=== PATIENT | male | born 1945 | race Asian ===

== ENCOUNTER 2016-11-28 18:34 | Inpatient (IN) | payer OTHER ==
[~2016-11-28] VITALS: Ht 170.2 cm; Wt 50.5 kg
[~2016-11-28 18:34] MED LIST: ACET-2902 PO; AMLO-511 PO; CALC-613 PO; EPOE10I SQ; FOLI1CAP2 PO; INSNOV SQ; PANT40TA25 PO; VITAD1000 PO; WARF5 PO
[2016-11-28 18:45] LABS: BASOPHILS % (AUTO) 0.3 % (0.0-2.0); EOSINOPHILS % (AUTO) 4.1 % (1.0-6.0); HEMATOCRIT 35.6 % (41-53); HEMOGLOBIN 11.6 g/dL (13.5-17.5); LYMPHOCYTES # (AUTO) 0.7 K/uL (1.0-4.8); LYMPHOCYTES % (AUTO) 12.2 % (22.0-44.0); MEAN CORPUSCULAR HEMOGLOBIN 28.1 pg (26.0-34.0); MEAN CORPUSCULAR HGB CONC 32.6 G/dL (31.0-37.0); MEAN CORPUSCULAR VOLUME 86 fL (80-100); MONOCYTES # (AUTO) 0.9 K/uL (0.1-1.0); MONOCYTES % (AUTO) 15.4 % (2.0-9.0); NEUTROPHILS # (AUTO) 4.2 K/uL (1.8-7.7); PLATELET COUNT (AUTO) 156 K/uL (150-450); RED BLOOD CELL COUNT(AUTO) 4.13 MIL/uL (4.50-5.90); RED CELL DISTRIBUTION WIDTH 14.6 % (11.5-14.5); WHITE BLOOD COUNT (AUTO) 6.1 K/uL (4.5-11.0)
[2016-11-28 18:57] LABS: INR 1.1 (0.9-1.1); PROTHROMBIN TIME 11.4 SEC (9.4-11.6)
[2016-11-28 19:03] LABS: ANION GAP 9 mmol/L (8-16); CALCIUM, TOTAL 8.5 mg/dL (8.8-10.5); CARBON DIOXIDE 33 mmol/L (22-29); CHLORIDE 97 mmol/L (98-107); CREATININE 5.25 mg/dL (0.60-1.30); GLOMERULAR FILTR. RATE CALC 11 mL/min (>60); POTASSIUM 3.6 mmol/L (3.5-5.1); SODIUM SERUM 139 mmol/L (136-145); UREA NITROGEN, BLOOD 45 mg/dL (7-18)
[2016-11-28 19:37] LABS: ALANINE AMINOTRANSFERASE 33 U/L (12-78); ASPARTATE AMINOTRANSFERASE 30 U/L (15-37); BILIRUBIN,TOTAL 0.8 mg/dL (0.1-1.0); CREATINE KINASE MB 3.6 ng/mL (0-5); CREATINE KINASE, TOTAL 167 U/L (39-308); TOTAL PROTEIN, SERUM 8.1 g/dL (6.4-8.2)
[2016-11-28] MEDS ORDERED: 0.9% SODIUM CHLORIDE 10 ML SYRINGE IVP PRN (20:00)
[2016-11-28] MEDS ORDERED: ACETAMINOPHEN 325 MG TABLET PO PRN (20:00)
[2016-11-28] MEDS ORDERED: ONDANSETRON HCL 4 MG/2 ML VIAL IVP PRN (20:00)
[2016-11-28] MEDS ORDERED: ASPIRIN 81 MG CHEWABLE TABLET PO ONE (20:15)
[2016-11-29] MEDS ORDERED: HydrALAZINE HCL 20 MG/ML VIAL IVP PRN (06:30)
[2016-11-29] MEDS: HydrALAZINE HCL 20 MG/ML VIAL IVP PRN (06:40)
[2016-11-29] MEDS ORDERED: LORazepam 2 MG/ML VIAL IVP ONE ×2 (07:00→15:00)
[2016-11-29] MEDS ORDERED: FOLI1CAP23 PO (07:40)
[2016-11-29] MEDS ORDERED: CACARB500 PO (07:40)
[2016-11-29] MEDS ORDERED: VITAD1000 PO (07:40)
[2016-11-29] MEDS ORDERED: PANT40TA25 PO (07:40)
[2016-11-29] MEDS ORDERED: PHOSLOC PO (07:40)
[2016-11-29 07:43] LABS: BASOPHILS % (AUTO) 0.1 % (0.0-2.0); EOSINOPHILS % (AUTO) 1.1 % (1.0-6.0); HEMATOCRIT 35.8 % (41-53); HEMOGLOBIN 11.8 g/dL (13.5-17.5); LYMPHOCYTES # (AUTO) 0.7 K/uL (1.0-4.8); LYMPHOCYTES % (AUTO) 9.4 % (22.0-44.0); MEAN CORPUSCULAR HEMOGLOBIN 28.2 pg (26.0-34.0); MEAN CORPUSCULAR HGB CONC 32.9 G/dL (31.0-37.0); MEAN CORPUSCULAR VOLUME 86 fL (80-100); MONOCYTES # (AUTO) 0.8 K/uL (0.1-1.0); MONOCYTES % (AUTO) 10.5 % (2.0-9.0); NEUTROPHILS # (AUTO) 5.9 K/uL (1.8-7.7); NEUTROPHILS % (AUTO) 78.9 % (40.0-70.0); PLATELET COUNT (AUTO) 159 K/uL (150-450); RED BLOOD CELL COUNT(AUTO) 4.18 MIL/uL (4.50-5.90); RED CELL DISTRIBUTION WIDTH 14.1 % (11.5-14.5); WHITE BLOOD COUNT (AUTO) 7.5 K/uL (4.5-11.0)
[2016-11-29] MEDS ORDERED: CALCIUM CARBONATE 500 MG CHEWABLE TABLET CHEW PRN (07:45)
[2016-11-29] MEDS ORDERED: CALCIUM ACETATE 667 MG CAPSULE PO SCH (08:00)
[2016-11-29] MEDS: PANTOPRAZOLE SODIUM 40 MG DR TABLET PO SCH (08:39)
[2016-11-29 08:46] LABS: BILIRUBIN,TOTAL 0.8 mg/dL (0.1-1.0); CALCIUM, TOTAL 8.3 mg/dL (8.8-10.5); CREATININE 5.99 mg/dL (0.60-1.30); POTASSIUM 4.7 mmol/L (3.5-5.1); TOTAL PROTEIN, SERUM 8.1 g/dL (6.4-8.2)
[2016-11-29] MEDS ORDERED: VITAMIN B COMP/VIT C/FOLIC ACID CAPSULE PO SCH (09:00)
[2016-11-29] MEDS: CHOLECALCIFEROL (VIT D3) 1,000 UNITS TABLET PO SCH (09:00)
[2016-11-29 11:16] LABS: GLUCOSE,POINT OF CARE 101 MG/DL (70-110)
[2016-11-29 11:50] LABS: MAGNESIUM 2.3 mg/dL (1.80-2.40); PHOSPHORUS 5.3 mg/dL (2.5-4.9)
[2016-11-29] MEDS: CALCIUM ACETATE 667 MG CAPSULE PO SCH ×2 (12:00→17:30)
[2016-11-29 13:27] LABS: CHOL/HDL RATIO 2.6 (4.2-7.3); THYROID STIMULATING HORMONE 1.95 uIU/mL (0.36-3.74)
[2016-11-29 15:39] VITALS: BP 168/81
[2016-11-29 19:10] VITALS: BP 187/98
[2016-11-29] MEDS ORDERED: LABETALOL HCL 5 MG/ML 20 ML VIAL IVP ONE (19:45)
[2016-11-29 21:12] VITALS: BP 156/79
[2016-11-29 22:09] VITALS: BP 135/73
[2016-11-29] MEDS ORDERED: 0.9% SODIUM CHLORIDE 10 ML SYRINGE IVP PRN (22:15)
[2016-11-29 23:15] LABS: CALCIUM, TOTAL 8.2 mg/dL (8.8-10.5); CREATININE 7.55 mg/dL (0.60-1.30); POTASSIUM 4.7 mmol/L (3.5-5.1)
[2016-11-29 23:54] LABS: APPEARANCE,URINE CLEAR (CLEAR); GLUCOSE, URINE (UA) 100 mg/dL (NEGATIVE); KETONES,URINE NEGATIVE (NEGATIVE); LEUKOCYTE ESTERASE ,URINE TRACE (NEGATIVE); OCCULT BLOOD,URINE SMALL (NEGATIVE); PROTEIN,URINE SEE CONFIRM (NEGATIVE)
[2016-11-29 23:55] LABS: ADD UA MICROSCOPIC YES
[2016-11-30 00:03] VITALS: BP 176/99
[2016-11-30 00:15] LABS: SQUAMOUS EPITHELIAL CELL,UR Few /LPF (None Seen); SULFOSALICYLIC ACID,URINE 3+ (Negative)
[2016-11-30] MEDS: HydrALAZINE HCL 20 MG/ML VIAL IVP PRN ×2 (00:47→08:26)
[2016-11-30 01:07] LABS: OCCULT BLOOD,GASTRIC FLUID POSITIVE (NEGATIVE)
[2016-11-30 01:11] LABS: PH, GASTRIC OKAY
[2016-11-30 04:16] VITALS: BP 174/91
[2016-11-30 06:13] VITALS: BP 171/83
[2016-11-30] MEDS ORDERED: LORazepam 2 MG/ML VIAL IVP ONE ×2 (06:30→09:15)
[2016-11-30 06:36] LABS: BASOPHILS % (AUTO) 0.2 % (0.0-2.0); EOSINOPHILS % (AUTO) 0.3 % (1.0-6.0); HEMATOCRIT 35.4 % (41-53); HEMOGLOBIN 11.5 g/dL (13.5-17.5); LYMPHOCYTES # (AUTO) 0.5 K/uL (1.0-4.8); LYMPHOCYTES % (AUTO) 4.1 % (22.0-44.0); MEAN CORPUSCULAR HEMOGLOBIN 27.9 pg (26.0-34.0); MEAN CORPUSCULAR HGB CONC 32.6 G/dL (31.0-37.0); MEAN CORPUSCULAR VOLUME 85 fL (80-100); MONOCYTES % (AUTO) 8.4 % (2.0-9.0); NEUTROPHILS # (AUTO) 10.4 K/uL (1.8-7.7); PLATELET COUNT (AUTO) 155 K/uL (150-450); RED BLOOD CELL COUNT(AUTO) 4.14 MIL/uL (4.50-5.90); RED CELL DISTRIBUTION WIDTH 14.3 % (11.5-14.5)
[2016-11-30 06:41] LABS: HEMOGLOBIN A1C 6.4 % (4.5-6.2)
[2016-11-30 06:51] LABS: MAGNESIUM 2.4 mg/dL (1.80-2.40); THYROID STIMULATING HORMONE 1.76 uIU/mL (0.36-3.74)
[2016-11-30 07:02] LABS: GLUCOSE,POINT OF CARE 146 MG/DL (70-110)
[2016-11-30] MEDS ORDERED: ASPIRIN 81 MG EC TABLET PO SCH (09:00)
[2016-11-30] MEDS: VITAMIN B COMP/VIT C/FOLIC ACID CAPSULE PO SCH ×2 (09:00→09:34)
[2016-11-30] MEDS: PANTOPRAZOLE SODIUM 40 MG DR TABLET PO SCH (09:34)
[2016-11-30] MEDS: ASPIRIN 81 MG CHEWABLE TABLET NG SCH (09:34)
[2016-11-30] MEDS: CALCIUM ACETATE 667 MG CAPSULE PO SCH ×3 (09:35→16:50)
[2016-11-30] MEDS: CHOLECALCIFEROL (VIT D3) 1,000 UNITS TABLET PO SCH (09:53)
[2016-11-30] MEDS ORDERED: LORazepam 1 MG TABLET PO PRN (10:15)
[2016-11-30] MEDS ORDERED: MANNITOL 25%-12.5 GM/50 ML VIAL IVP PRN (10:15)
[2016-11-30] MEDS ORDERED: ALBUMIN HUMAN 25%-12.5GM/50ML IV BOTTLE IV PRN (10:15)
[2016-11-30] MEDS: PANTOPRAZOLE SODIUM 40 MG/VIAL IVP SCH (11:14)
[2016-11-30 13:41] LABS: GLUCOSE,POINT OF CARE 112 MG/DL (70-110)
[2016-11-30 17:38] VITALS: BP 155/73
[2016-11-30] MEDS ORDERED: DiphenhydrAMINE HCL 50 MG/ML VIAL IVP ONE (18:50)
[2016-11-30 20:14] VITALS: BP 166/80
[2016-11-30] MEDS: NITROGLYCERIN 2% (1 GM=INCH) PACKET TP SCH (20:30)
[2016-11-30 23:00] VITALS: BP 124/88
[2016-12-01] MEDS: NITROGLYCERIN 2% (1 GM=INCH) PACKET TP SCH ×5 (00:35→23:04)
[2016-12-01] MEDS: PANTOPRAZOLE SODIUM 40 MG/VIAL IVP SCH ×3 (00:36→20:49)
[2016-12-01 04:03] VITALS: BP 103/78
[2016-12-01] MEDS: LORazepam 2 MG/ML VIAL IVP PRN (05:14)
[2016-12-01 07:06] LABS: BASOPHILS % (AUTO) 0.3 % (0.0-2.0); EOSINOPHILS % (AUTO) 1.6 % (1.0-6.0); HEMOGLOBIN 11.7 g/dL (13.5-17.5); LYMPHOCYTES # (AUTO) 0.7 K/uL (1.0-4.8); LYMPHOCYTES % (AUTO) 5.7 % (22.0-44.0); MEAN CORPUSCULAR HEMOGLOBIN 27.9 pg (26.0-34.0); MEAN CORPUSCULAR HGB CONC 32.6 G/dL (31.0-37.0); MEAN CORPUSCULAR VOLUME 86 fL (80-100); MONOCYTES # (AUTO) 1.2 K/uL (0.1-1.0); MONOCYTES % (AUTO) 10.4 % (2.0-9.0); NEUTROPHILS # (AUTO) 9.6 K/uL (1.8-7.7); PLATELET COUNT (AUTO) 176 K/uL (150-450); RED CELL DISTRIBUTION WIDTH 14.4 % (11.5-14.5); WHITE BLOOD COUNT (AUTO) 11.8 K/uL (4.5-11.0)
[2016-12-01 07:30] VITALS: BP 123/76
[2016-12-01 07:54] LABS: ALBUMIN 2.8 g/dL (3.4-5.0); CALCIUM, TOTAL 9.2 mg/dL (8.8-10.5); CREATININE 6.06 mg/dL (0.60-1.30); MAGNESIUM 2.4 mg/dL (1.80-2.40); PHOSPHORUS 5.9 mg/dL (2.5-4.9); POTASSIUM 4.5 mmol/L (3.5-5.1); THYROID STIMULATING HORMONE 3.44 uIU/mL (0.36-3.74); TOTAL PROTEIN, SERUM 7.6 g/dL (6.4-8.2)
[2016-12-01] MEDS: CALCIUM ACETATE 667 MG CAPSULE PO SCH ×3 (09:55→17:57)
[2016-12-01] MEDS: ASPIRIN 81 MG CHEWABLE TABLET NG SCH (09:55)
[2016-12-01] MEDS: VITAMIN B COMP/VIT C/FOLIC ACID CAPSULE PO SCH (09:55)
[2016-12-01] MEDS: CHOLECALCIFEROL (VIT D3) 1,000 UNITS TABLET PO SCH (09:55)
[2016-12-01 10:00] LABS: ABG A-A DIFF O2 65.7 mmHg (10-20.0); ABG BASE EXCESS -0.2 mmol/L (-2.0-3.0); ABG HCO3 24.5 mmol/L (22.0-26.0); ABG OXYHEMOGLOBIN 94.7 % (94.0-100.0); ABG PCO2 37 mmHg (35-45); ABG PH 7.429 (7.35-7.450); TEMPERATURE, FAHRENHEIT, BG 98.7 FAHREN (96.0-98.6)
[2016-12-01 11:02] VITALS: BP 141/65
[2016-12-01 15:20] VITALS: BP 121/64
[2016-12-01 19:43] VITALS: BP 140/85
[2016-12-02] VITALS (7 sets, daily range): BP systolic 108–142; BP diastolic 63–88
[2016-12-02] MEDS: NITROGLYCERIN 2% (1 GM=INCH) PACKET TP SCH ×4 (05:11→23:56)
[2016-12-02] MEDS ORDERED: ALBUMIN HUMAN 25%-12.5GM/50ML IV BOTTLE IV PRN (08:15)
[2016-12-02] MEDS ORDERED: MANNITOL 25%-12.5 GM/50 ML VIAL IVP PRN (08:15)
[2016-12-02] MEDS: CALCIUM ACETATE 667 MG CAPSULE PO SCH ×3 (08:23→18:02)
[2016-12-02] MEDS: ASPIRIN 81 MG CHEWABLE TABLET NG SCH (08:24)
[2016-12-02] MEDS: CHOLECALCIFEROL (VIT D3) 1,000 UNITS TABLET PO SCH (08:24)
[2016-12-02] MEDS: PANTOPRAZOLE SODIUM 40 MG/VIAL IVP SCH ×2 (08:24→20:26)
[2016-12-02] MEDS: LORazepam 2 MG/ML VIAL IVP PRN (08:55)
[2016-12-02] MEDS: VITAMIN B COMP/VIT C/FOLIC ACID CAPSULE PO SCH (11:49)
[2016-12-02] MEDS ORDERED: ACETAMINOPHEN 650 MG/20.3 ML SOLUTION UDCUP NG PRN (15:45)
[2016-12-02] MEDS: METOPROLOL TARTRATE 25 MG TABLET PO SCH (20:26)
[2016-12-02] MEDS: OXYGEN THERAPY IH SCH (20:26)
[2016-12-03 05:02] VITALS: BP 144/86
[2016-12-03] MEDS: NITROGLYCERIN 2% (1 GM=INCH) PACKET TP SCH ×3 (05:49→17:05)
[2016-12-03 07:52] VITALS: BP 137/76
[2016-12-03] MEDS: CALCIUM ACETATE 667 MG CAPSULE PO SCH ×3 (09:18→17:05)
[2016-12-03] MEDS: OXYGEN THERAPY IH SCH ×2 (09:18→21:44)
[2016-12-03] MEDS: VITAMIN B COMP/VIT C/FOLIC ACID CAPSULE PO SCH (09:19)
[2016-12-03] MEDS: CHOLECALCIFEROL (VIT D3) 1,000 UNITS TABLET PO SCH (09:19)
[2016-12-03] MEDS: ASPIRIN 81 MG CHEWABLE TABLET NG SCH (09:19)
[2016-12-03] MEDS: METOPROLOL TARTRATE 25 MG TABLET PO SCH ×2 (09:19→21:43)
[2016-12-03] MEDS: PANTOPRAZOLE SODIUM 40 MG/VIAL IVP SCH ×2 (09:19→21:45)
[2016-12-03 13:05] VITALS: BP 143/89
[2016-12-03 13:42] LABS: BASOPHILS % (AUTO) 0.1 % (0.0-2.0); EOSINOPHILS % (AUTO) 2.6 % (1.0-6.0); HEMATOCRIT 38.9 % (41-53); HEMOGLOBIN 12.4 g/dL (13.5-17.5); LYMPHOCYTES # (AUTO) 0.6 K/uL (1.0-4.8); LYMPHOCYTES % (AUTO) 5.7 % (22.0-44.0); MEAN CORPUSCULAR HEMOGLOBIN 27.5 pg (26.0-34.0); MEAN CORPUSCULAR HGB CONC 31.9 G/dL (31.0-37.0); MEAN CORPUSCULAR VOLUME 86 fL (80-100); MONOCYTES # (AUTO) 1.3 K/uL (0.1-1.0); MONOCYTES % (AUTO) 12.7 % (2.0-9.0); NEUTROPHILS # (AUTO) 8.3 K/uL (1.8-7.7); NEUTROPHILS % (AUTO) 78.9 % (40.0-70.0); PLATELET COUNT (AUTO) 191 K/uL (150-450); RED BLOOD CELL COUNT(AUTO) 4.53 MIL/uL (4.50-5.90); RED CELL DISTRIBUTION WIDTH 14.4 % (11.5-14.5); WHITE BLOOD COUNT (AUTO) 10.6 K/uL (4.5-11.0)
[2016-12-03 13:54] LABS: ALBUMIN 2.8 g/dL (3.4-5.0); BILIRUBIN,TOTAL 0.7 mg/dL (0.1-1.0); CALCIUM, TOTAL 10.7 mg/dL (8.8-10.5); CREATININE 6.59 mg/dL (0.60-1.30)
[2016-12-03 13:59] LABS: LACTIC ACID 0.8 mmol/L (0.4-2.0)
[2016-12-03 14:03] LABS: POTASSIUM 4.1 mmol/L (3.5-5.1)
[2016-12-03 15:45] VITALS: BP 154/79
[2016-12-03 19:35] VITALS: BP 119/69
[2016-12-03 23:05] VITALS: BP 123/71
[2016-12-04] MEDS: NITROGLYCERIN 2% (1 GM=INCH) PACKET TP SCH ×4 (01:08→18:39)
[2016-12-04 04:43] VITALS: BP 150/80
[2016-12-04 06:59] LABS: CALCIUM, TOTAL 11.1 mg/dL (8.8-10.5); CREATININE 7.74 mg/dL (0.60-1.30); POTASSIUM 4.2 mmol/L (3.5-5.1)
[2016-12-04 07:21] LABS: BASOPHILS % (AUTO) 0.1 % (0.0-2.0); EOSINOPHILS % (AUTO) 4.1 % (1.0-6.0); HEMATOCRIT 38.3 % (41-53); HEMOGLOBIN 12.4 g/dL (13.5-17.5); LYMPHOCYTES # (AUTO) 0.7 K/uL (1.0-4.8); LYMPHOCYTES % (AUTO) 6.9 % (22.0-44.0); MEAN CORPUSCULAR HEMOGLOBIN 27.9 pg (26.0-34.0); MEAN CORPUSCULAR HGB CONC 32.4 G/dL (31.0-37.0); MEAN CORPUSCULAR VOLUME 86 fL (80-100); MONOCYTES % (AUTO) 10.4 % (2.0-9.0); NEUTROPHILS # (AUTO) 7.9 K/uL (1.8-7.7); NEUTROPHILS % (AUTO) 78.5 % (40.0-70.0); PLATELET COUNT (AUTO) 195 K/uL (150-450); RED BLOOD CELL COUNT(AUTO) 4.45 MIL/uL (4.50-5.90); RED CELL DISTRIBUTION WIDTH 14.1 % (11.5-14.5); WHITE BLOOD COUNT (AUTO) 10.1 K/uL (4.5-11.0)
[2016-12-04 07:35] VITALS: BP 107/47
[2016-12-04] MEDS ORDERED: INFLUENZA VIRUS VACCINE QVS 2016-17 (3YR+)/PF 60 MCG/0.5 ML SYRINGE IM ONE (08:00)
[2016-12-04] MEDS: CHOLECALCIFEROL (VIT D3) 1,000 UNITS TABLET PO SCH (09:13)
[2016-12-04] MEDS: ASPIRIN 81 MG CHEWABLE TABLET NG SCH (09:13)
[2016-12-04] MEDS: METOPROLOL TARTRATE 25 MG TABLET PO SCH ×2 (09:13→21:00)
[2016-12-04] MEDS: CALCIUM ACETATE 667 MG CAPSULE PO SCH ×2 (09:13→18:39)
[2016-12-04] MEDS: PANTOPRAZOLE SODIUM 40 MG/VIAL IVP SCH (09:15)
[2016-12-04] MEDS: VITAMIN B COMP/VIT C/FOLIC ACID CAPSULE PO SCH (09:16)
[2016-12-04] MEDS: OXYGEN THERAPY IH SCH ×2 (09:29→21:32)
[2016-12-04 11:33] VITALS: BP 112/70
[2016-12-04 15:32] VITALS: BP 118/58
[2016-12-04] MEDS ORDERED: CALCIUM CARBONATE 500 MG CHEWABLE TABLET PO PRN (17:45)
[2016-12-04 20:08] VITALS: BP 107/66
[2016-12-04] MEDS: TICAGRELOR 90 MG TABLET PO SCH (21:31)
[2016-12-04 22:02] LABS: GLUCOSE,POINT OF CARE 142 MG/DL (70-110)
[2016-12-05] VITALS (7 sets, daily range): BP systolic 98–122; BP diastolic 58–74
[2016-12-05] MEDS: NITROGLYCERIN 2% (1 GM=INCH) PACKET TP SCH ×5 (00:56→23:50)
[2016-12-05 08:13] LABS: CALCIUM, TOTAL 10.8 mg/dL (8.8-10.5); CREATININE 10.35 mg/dL (0.60-1.30); PHOSPHORUS 5.6 mg/dL (2.5-4.9); POTASSIUM 4.5 mmol/L (3.5-5.1)
[2016-12-05] MEDS: CALCIUM ACETATE 667 MG CAPSULE PO SCH ×3 (08:56→17:48)
[2016-12-05] MEDS: CHOLECALCIFEROL (VIT D3) 1,000 UNITS TABLET PO SCH (08:56)
[2016-12-05] MEDS: LISINOPRIL 5 MG TABLET PO SCH (08:56)
[2016-12-05] MEDS: PANTOPRAZOLE SODIUM 40 MG DR TABLET PO SCH (08:56)
[2016-12-05] MEDS: METOPROLOL TARTRATE 25 MG TABLET PO SCH ×2 (08:56→19:57)
[2016-12-05] MEDS: TICAGRELOR 90 MG TABLET PO SCH ×2 (08:57→19:57)
[2016-12-05] MEDS: VITAMIN B COMP/VIT C/FOLIC ACID CAPSULE PO SCH (08:57)
[2016-12-05] MEDS: ASPIRIN 81 MG CHEWABLE TABLET NG SCH (08:57)
[2016-12-05] MEDS: ATORVASTATIN CALCIUM 40 MG TABLET PO SCH (08:57)
[2016-12-05] MEDS ORDERED: VITAMIN B COMP/VIT C/FOLIC ACID CAPSULE PO SCH (09:00)
[2016-12-05] MEDS ORDERED: CHOLECALCIFEROL (VIT D3) 1,000 UNITS TABLET PO SCH (09:00)
[2016-12-05 11:42] LABS: GLUCOSE,POINT OF CARE 222 MG/DL (70-110)
[2016-12-05] MEDS ORDERED: SODIUM CHLORIDE 0.9% 2,000 ML IV ONE (13:01)
[2016-12-05] MEDS: OXYGEN THERAPY IH SCH (19:58)
[2016-12-06 04:09] VITALS: BP 125/71
[2016-12-06] MEDS: NITROGLYCERIN 2% (1 GM=INCH) PACKET TP SCH ×3 (06:01→18:27)
[2016-12-06 08:00] VITALS: BP 148/83
[2016-12-06] MEDS: OXYGEN THERAPY IH SCH (08:53)
[2016-12-06] MEDS: CALCIUM ACETATE 667 MG CAPSULE PO SCH ×3 (08:53→18:27)
[2016-12-06] MEDS: ASPIRIN 81 MG CHEWABLE TABLET NG SCH (08:53)
[2016-12-06] MEDS: ATORVASTATIN CALCIUM 40 MG TABLET PO SCH (08:54)
[2016-12-06] MEDS: VITAMIN B COMP/VIT C/FOLIC ACID CAPSULE PO SCH (08:54)
[2016-12-06] MEDS: LISINOPRIL 5 MG TABLET PO SCH (08:54)
[2016-12-06] MEDS: PANTOPRAZOLE SODIUM 40 MG DR TABLET PO SCH (08:54)
[2016-12-06] MEDS: CHOLECALCIFEROL (VIT D3) 1,000 UNITS TABLET PO SCH (08:54)
[2016-12-06] MEDS: METOPROLOL TARTRATE 25 MG TABLET PO SCH ×2 (08:54→20:09)
[2016-12-06] MEDS: TICAGRELOR 90 MG TABLET PO SCH ×2 (09:01→20:09)
[2016-12-06 12:34] VITALS: BP 122/66
[2016-12-06 16:00] VITALS: BP 149/68
[2016-12-06 19:22] VITALS: BP 143/73
== END 2016-12-06 20:55 | DRG 64 ==
LOC: EMS 18:36 → AHU 11-29 09:45 → 5S 11-30 21:20 → 6N 12-04 18:55
PROVIDERS: ADMIT Family Medicine; ATTEND Family Medicine
PROC: 0DH67UZ Insertion of Feeding Device into Stomach, Via Natural or Artificial Opening (ICD-10-PCS; principal; 2016-11-29)
PROC: 5A1D60Z (ICD-10-PCS; 2016-11-29)
DX: I63.9 Cerebral infarction, unspecified (principal); N18.6 End stage renal disease; G93.40 Encephalopathy, unspecified; I13.2 Hypertensive heart and chronic kidney disease with heart failure and with stage 5 chronic kidney disease, or end stage renal disease; G81.90 Hemiplegia, unspecified affecting unspecified side; I50.22 Chronic systolic (congestive) heart failure; R47.01 Aphasia; E11.22 Type 2 diabetes mellitus with diabetic chronic kidney disease; I48.0 Paroxysmal atrial fibrillation; E88.09 Other disorders of plasma-protein metabolism, not elsewhere classified; E83.52 Hypercalcemia; I27.2 Other secondary pulmonary hypertension; I34.0 Nonrheumatic mitral (valve) insufficiency; F32.9 Major depressive disorder, single episode, unspecified; N25.0 Renal osteodystrophy; I65.21 Occlusion and stenosis of right carotid artery; M19.90 Unspecified osteoarthritis, unspecified site; I25.5 Ischemic cardiomyopathy; D64.9 Anemia, unspecified; R29.810 Facial weakness; R13.10 Dysphagia, unspecified; E78.5 Hyperlipidemia, unspecified; Z86.73 Personal history of transient ischemic attack (TIA), and cerebral infarction without residual deficits; Z87.442 Personal history of urinary calculi; Z99.2 Dependence on renal dialysis; Z88.0 Allergy status to penicillin; Z79.01 Long term (current) use of anticoagulants; Z79.4 Long term (current) use of insulin; Z79.1 Long term (current) use of non-steroidal anti-inflammatories (NSAID); Z79.899 Other long term (current) drug therapy; Z28.21 Immunization not carried out because of patient refusal
CPT/HCPCS: 70496; 70551; 71250; 76700; 82271; 82607; 82746; 82805; 82962; 83036; 83605; 83735; 84100; 84443; 87081; 87340; 90935; 92526; 92610; 93005; 93306; 93880; 97112; 97162; 97167; 97530; 97535; 99285; C9113; J0360; J1200; J2060; J2405; J3490; J7030

== ENCOUNTER 2018-10-01 04:12 | Emergency (ER) | payer OTHER ==
[~2018-10-01] VITALS: Ht 170.2 cm; Wt 63.6 kg
[~2018-10-01 04:12] MED LIST changes: -ACET-2902 PO; -AMLO-511 PO; +CACARB500 PO; -CALC-613 PO; -EPOE10I SQ; -FOLI1CAP2 PO; +FOLI1CAP23 PO; -INSNOV SQ; +PHOSLOC PO; -WARF5 PO
[2018-10-01] MEDS ORDERED: IOVERSOL 350 MG/ML 100 ML VIAL ONE (04:30)
[2018-10-01] MEDS ORDERED: SODIUM CHLORIDE 0.9% 100 ML ONE (04:31)
[2018-10-01 05:14] LABS: BASOPHILS % (AUTO) 0.6 % (0.0-2.0); EOSINOPHILS % (AUTO) 2.6 % (1.0-6.0); HEMATOCRIT 33.5 % (41-53); HEMOGLOBIN 11.2 g/dL (13.5-17.5); LYMPHOCYTES # (AUTO) 1.4 K/uL (1.0-4.8); LYMPHOCYTES % (AUTO) 12.5 % (22.0-44.0); MEAN CORPUSCULAR HEMOGLOBIN 30.2 pg (26.0-34.0); MEAN CORPUSCULAR HGB CONC 33.4 G/dL (31.0-37.0); MEAN CORPUSCULAR VOLUME 90 fL (80-100); MONOCYTES # (AUTO) 0.9 K/uL (0.1-1.0); MONOCYTES % (AUTO) 8.6 % (2.0-9.0); NEUTROPHILS # (AUTO) 8.3 K/uL (1.8-7.7); NEUTROPHILS % (AUTO) 75.7 % (40.0-70.0); PLATELET COUNT (AUTO) 170 K/uL (150-450); RED CELL DISTRIBUTION WIDTH 13.5 % (11.5-14.5)
[2018-10-01 05:21] LABS: CALCIUM, TOTAL 7.4 mg/dL (8.8-10.5); CREATININE 10.53 mg/dL (0.60-1.30); POTASSIUM 4.3 mmol/L (3.5-5.1)
[2018-10-01 05:24] LABS: PROTHROMBIN TIME 10.8 SEC (9.4-11.6)
[2018-10-01 05:27] LABS: ALBUMIN 2.9 g/dL (3.4-5.0); BILIRUBIN,TOTAL 0.5 mg/dL (0.1-1.0); TOTAL PROTEIN, SERUM 7.5 g/dL (6.4-8.2)
[2018-10-01] MEDS ORDERED: ATOR40TA28 PO (06:43)
[2018-10-01] MEDS ORDERED: AMYL1CAP62 PO (06:43)
[2018-10-01] MEDS ORDERED: LEVE500T53 PO (06:43)
[2018-10-01] MEDS ORDERED: FOLI1CAP23 PO (06:45)
[2018-10-01] MEDS ORDERED: ENOXAPARIN SODIUM 30 MG/0.3 ML PF SYRINGE SQ ONE (06:45)
[2018-10-01] MEDS ORDERED: PHOSLOC PO (06:46)
[2018-10-01 07:45] VITALS: BP 197/49
== END 2018-10-01 08:33 | disposition short-term general hospital (02) ==
LOC: EMS 04:12
DX: I63.9 Cerebral infarction, unspecified (principal); I12.0 Hypertensive chronic kidney disease with stage 5 chronic kidney disease or end stage renal disease; E11.22 Type 2 diabetes mellitus with diabetic chronic kidney disease; N18.6 End stage renal disease; Z99.2 Dependence on renal dialysis; Z88.0 Allergy status to penicillin
CPT/HCPCS: 36415; 70450; 70496; 71045; 80053; 82962; 83605; 84484; 85025; 85610; 85730; 93005; 96372; 99285; J1650; J7050; Q9967